=== PATIENT | male | born 1965 | race Caucasian/White ===

== ENCOUNTER → 2021-08-20 | Outpatient (CLI) | payer OTHER | LOC: CARD 12:00 | PROVIDERS: ATTEND Internal Medicine Cardiovascular Disease | DX: I11.9 Hypertensive heart disease without heart failure (principal) | CPT/HCPCS: 93306 ==

== ENCOUNTER → 2021-08-21 | Outpatient (CLI) | payer OTHER ==
[~2021-08-21] VITALS: Ht 175 cm; Wt 114.0 kg
[~2021-08-21] MED LIST: CATHETER FLUSH 10 ML SYR IV PRN
[2021-08-21 13:03] VITALS: BP 120/74
--- NOTE | 2021-08-21 13:56 | Cardiology Stress Test Report ---
Stress Test Report Date of Procedure/Referring: Date of Procedure: Aug 21, 2021 PCP Damien Connor MD Admitting Physician No,Local Physician Indications: CP Baseline Heart Rate: 63 Baseline Blood Pressure: Blood Pressure Systolic: 120 Blood Pressure Diastolic: 74 Vital Signs Date Time Temp Pulse Resp B/P (MAP) Pulse Ox O2 Delivery O2 Flow Rate FiO2 08/21/21 13:03 98 16 120/74 (89) 98 Room Air Baseline Vital Signs Vital Signs Date Time Temp Pulse Resp B/P (MAP) Pulse Ox O2 Delivery O2 Flow Rate FiO2 08/21/21 13:03 98 16 120/74 (89) 98 Room Air Baseline EKG: Baseline EKG: NSR Summary: After explaining the procedure and details to the patient, he signed the consent and was brought to the stress nuclear laboratory. Patient exercised on standard Craig protocol, EKG, heart rate and blood pressure were monitored continuously, resting and stress doses of radio tracer were injected, imaging was acquired and reviewed in the short axis, horizontal long axis and vertical long axis views Patient was able to exercise for a total of 9 minutes on Craig protocol, METs 10.5 Maximum heart rate 152 Maximum blood pressure 192/90 Stress EKG, Minimal nondiagnostic changes Recovery EKG, Return to baseline TID: 0.87 SSS: 1 SDS: 1 EF: 63 Conclusion: 1. Good exercise tolerance for a total of 9 minutes on standard Craig Motrin Cold, 10.5 METS achieving 92% of maximal expected heart rate 2. Appropriate heart rate response to exercise with hypertensive response to exercise with peak blood pressure 192/90 return to baseline during recovery 3. Diaphragmatic attenuation with typical male pattern with no significant ischemia or infarction on SPECT images 4. Normal left ventricular size with ejection fraction 63% DAMIEN CONNOR MD Aug 21, 2021 13:56
== END ==
LOC: CARD 10:24
PROVIDERS: ATTEND Internal Medicine Cardiovascular Disease
DX: I10 Essential (primary) hypertension (principal)
CPT/HCPCS: 78452; 93017; A9502